=== PATIENT | male | born 1985 | race Caucasian/White ===

== ENCOUNTER 2017-02-17 21:25 | Emergency (ER) | payer OTHER ==
[2017-02-17] MEDS: ACETAMINOPHEN 325 MG TAB PO (22:43)
[2017-02-17] MEDS: ONDANSETRON (ODT) 4 MG TAB ODT (22:43)
[2017-02-17] MEDS: DICYCLOMINE 10 MG CAP PO (22:43)
[2017-02-17] MEDS: IBUPROFEN 600 MG TAB PO (22:43)
== END 2017-02-17 23:00 | disposition home or self-care (01) ==
LOC: FTE 23:00
DX: A08.4 Viral intestinal infection, unspecified (principal); F17.210 Nicotine dependence, cigarettes, uncomplicated
CPT/HCPCS: 99284; Z7502